=== PATIENT | female | born 1950 | race Caucasian/White ===

== ENCOUNTER → 2018-07-13 09:51 | Outpatient (CLI) | payer MEDICARE, OTHER, SELFPAY ==
--- NOTE | 2018-07-13 10:12 | EKG12_ITS ---
Test Reason : PRE OP Blood Pressure : / mmHG Vent. Rate : 064 BPM Atrial Rate : 064 BPM P-R Int : 142 ms QRS Dur : 072 ms QT Int : 416 ms P-R-T Axes : 025 013 038 degrees QTc Int : 429 ms Normal sinus rhythm Normal ECG Confirmed by JERRY MCKEON MD ([id number]), manager editorial ELIO BRIGHT ([id number]) on 07/16/2018 11:45:34 AM Referred By: Alec Toro Confirmed By:JERRY MCKEON MD
[2018-07-13 10:28] LABS: Hematocrit 43.3 % (37-47); Hemoglobin 14.7 g/dl (12.0-15.0); Mean Corp Hgb Conc 33.9 g/gl (32-36); Mean Corpuscular Hgb 29.6 pg (27.0-32.0); Mean Corpuscular Volume 87.3 fL (81-99); Platelet Count 192 K/mm3 (150-450); RBC Distribution Width CV 13.5 % (11.6-14.6); RBC Distribution Width SD 41.8 fl (35.1-43.9); Red Blood Count 4.96 M/mm3 (4.2-5.4); White Blood Count 6.2 K/mm3 (4.4-11.0)
[2018-07-13 10:29] LABS: Scan Indicated on CBC? Y/N NO
[2018-07-13 10:57] LABS: Amylase 49 U/L (25-115); Anion Gap 7 (5-15); BUN 14 mg/dL (7-18); BUN/Creat Ratio 15.8 RATIO (10-20); Calcium,Total 8.7 mg/dL (8.5-10.1); Chloride 111 mmol/L (98-107); Creatinine, Serum 0.89 mg/dL (0.55-1.02); EST Glomerular Filtration Rate 68 mL/min (>60); Est Glom Filt Rate - Afr Amer 82 mL/min (>60); Glucose 94 mg/dL (74-106); Potassium 4.1 mmol/L (3.5-5.1); Sodium Level 146 mmol/L (136-145)
== END ==
PROVIDERS: Family Provider Family Medicine; PCP Family Medicine; Referring Provider Surgery; Visit Provider Surgery
DX: Z01.812 Encounter for preprocedural laboratory examination (principal); Z01.810 Encounter for preprocedural cardiovascular examination
CPT/HCPCS: 36415; 80048; 82150; 85027; 93005

== ENCOUNTER → 2020-01-09 10:00 | Outpatient (CLI) | payer MEDICARE, SELFPAY ==
--- NOTE | 2020-01-09 10:33 | EKG12_ITS ---
Test Reason : RE OP Blood Pressure : / mmHG Vent. Rate : 060 BPM Atrial Rate : 060 BPM P-R Int : 144 ms QRS Dur : 070 ms QT Int : 412 ms P-R-T Axes : 009 016 050 degrees QTc Int : 412 ms Normal sinus rhythm Normal ECG Confirmed by DANIELA GRANT, HIWOT ([id number]), video news editor ANA JAMES ([id number]) on 01/10/2020 11:37:33 A M Referred By: Alec Toro Confirmed By:JP SUAREZ MD
[2020-01-09 10:36] LABS: Hematocrit 42.4 % (37-47); Hemoglobin 14.4 g/dL (12.0-15.0); Mean Corpuscular Hgb 29.5 pg (27.0-32.0); Mean Corpuscular Volume 86.9 fL (81-99); Mean Platelet Vol. 8.6 fl (6.2-12.0); Platelet Count 161 K/mm3 (150-450); RBC Distribution Width CV 13.2 % (11.6-14.6); RBC Distribution Width SD 41.1 fl (35.1-43.9); Red Blood Count 4.88 M/mm3 (4.2-5.4); White Blood Count 5.6 K/mm3 (4.4-11.0)
[2020-01-09 10:56] LABS: Anion Gap 4 (5-15); BUN 12 mg/dL (7-18); BUN/Creat Ratio 14.1 RATIO (10-20); Calcium,Total 8.7 mg/dL (8.5-10.1); Chloride 112 mmol/L (98-107); Creatinine, Serum 0.85 mg/dL (0.55-1.02); EST Glomerular Filtration Rate 70 mL/min (>60); Est Glom Filt Rate - Afr Amer 85 mL/min (>60); Glucose 93 mg/dL (74-106); Potassium 4.2 mmol/L (3.5-5.1); Sodium Level 143 mmol/L (136-145)
== END ==
PROVIDERS: PCP Family Medicine; Referring Provider Surgery; Visit Provider Surgery
DX: Z01.812 Encounter for preprocedural laboratory examination (principal)
CPT/HCPCS: 36415; 80048; 85027; 87635; 93005; 94799; U0003

== ENCOUNTER 2020-07-13 06:44 | Outpatient (RCR) | payer MEDICARE, SELFPAY | END 2020-07-13 23:59 | LOC: IMMUN 06:44 | PROVIDERS: PCP Family Medicine; Referring Provider Family Medicine; Visit Provider Family Medicine | DX: Z23 Encounter for immunization (principal) | CPT/HCPCS: 0011A; 0012A ==

== ENCOUNTER → 2024-01-16 | Outpatient (CLI) | payer MEDICARE, SELFPAY ==
[2024-01-16 09:19] LABS: Vitamin D,25 Hydroxy 88.8 ng/mL
[2024-01-16 09:21] LABS: ALB/GLOB Ratio 1.3 RATIO (0.9-2.4); AST(SGOT) 16 U/L (15-37); Alanine Aminotransfer ALT/SGPT 24 U/L (13-56); Albumin, Serum 3.8 g/dL (3.2-5.0); Alkaline Phosphatase 91 U/L (45-117); Anion Gap 8 (5-15); BUN 14 mg/dL (7-18); BUN/Creat Ratio 17.1 RATIO (10-20); Chloride 111 mmol/L (98-107); Cholesterol 122 mg/dL (200); Creatinine, Serum 0.82 mg/dL (0.55-1.02); EST Glomerular Filtration Rate 73 mL/min (>60); Est Glom Filt Rate - Afr Amer 88 mL/min (>60); Glucose 162 mg/dL (74-106); High Density Lipoprotein 54 mg/dL; Protein, Total 6.8 g/dL (6.4-8.2); Sodium Level 143 mmol/L (136-145); Triglycerides 84 mg/dL; Very Low Density Lipoprotein 17 mg/dL (5-40)
== END | disposition home or self-care (01) ==
LOC: LAB 08:21
PROVIDERS: PCP Family Medicine; Referring Provider Family Medicine; Visit Provider Family Medicine
DX: E78.5 Hyperlipidemia, unspecified (principal); E11.8 Type 2 diabetes mellitus with unspecified complications; E55.9 Vitamin D deficiency, unspecified
CPT/HCPCS: 36415; 80053; 80061; 82306; 84443

== ENCOUNTER 2024-02-16 11:13 | Emergency (ER) | payer MEDICARE, SELFPAY ==
[2024-02-16 11:14] VITALS: BP 98/60; PULSE 51; RESP 16; TEMP 36.7; O2SAT 97; BMI 26.5
--- NOTE | 2024-02-16 11:25 | RAD_ITS ---
STUDY: X-RAY - LEFT WRIST REASON FOR EXAM: Female, 73 years old. INJURY TECHNIQUE: 3 view(s) of the wrist were obtained. COMPARISON: None. FINDINGS: There is a comminuted fracture of the distal radial metaphysis extending to the articular surface with dorsal facing. Avulsion fracture of the ulnar styloid. Normal radiocarpal articulation. Normal distal radioulnar articulation. Normal carpal bones. Normal carpal articulations. Normal carpometacarpal articulation of the thumb. Normal second through fifth carpometacarpal articulations. Normal visualized metacarpal bones. Soft tissue swelling. RAD/Wrist min 3 Views IMPRESSION: Comment a fracture of the distal radial metaphysis with extension to the articular surface. Dorsal facing. Avulsion fracture of the ulnar styloid. Electronically Signed: Familia Young MD at 12:25 EDT ,
--- NOTE | 2024-02-16 12:45 | CON.PCM.OR_ITS ---
HPI Consult Data Date of Consult: 02/16/24 HPI Narrative HPI Narrative: MARTHA MORSE, is a 73 F who presents with a distal radius fracture. called by Dr. Ramachandran. fell playing pickleball. intra articular fracture. wondering about reduction closed vs surgery. nvi per the provider, closed [facility] Medical History (Updated 02/16/24 @ 12:46 by Shantanu Mejia MD) Distal radius fracture Diabetes Allergy/AdvReac Type Severity Reaction Status Date / Time No Known Allergies Allergy Verified 02/16/24 11:16 Social History Smoking Status: Never smoker Vital Signs Vital Signs Vital Signs: 02/16/24 11:14 Temperature 98.1 F Temperature Source Oral Pulse Rate 51 L Respiratory Rate 16 Blood Pressure 98/60 Blood Pressure Mean 72 Pulse Ox 97 Oxygen Delivery Method Room Air Weight Weight: 145 lb Body Mass Index (BMI) 26.5 Imaging Radiology Impression Wrist X-Ray 02/16/24 11:25 IMPRESSION: Comment a fracture of the distal radial metaphysis with extension to the articular surface. Dorsal facing. Avulsion fracture of the ulnar styloid. Electronically Signed: Familia Young MD at 12:25 EDT , Assessment & Plan Assessment/Plan (1) Distal radius fracture: PLAN: 73 yr F with a intra articular angulated DRF. Can give option of closed reduction and casting. Other option is splint and consider ORIF as outpatient. Either is appropriate. Dr. Ramachandran will give options to patient. OK to FU outpatient next week.
[2024-02-16] MEDS: traMADol 50 MG Tablet PO (12:46)
--- NOTE | 2024-02-16 12:51 | EDS_ITS ---
HPI History of Present Illness Chief Complaint: Upper Extremity Injury Informant: patient Narrative Narrative: Healthy 73-year-old female was playing pickle ball today and stumbled fell onto her left hand/wrist, immediate pain in the left wrist and inability to move it. She is right-hand dominant. She also fell onto her buttocks but she denies any pain or injury there or anywhere else. Denies any numbness or tingling. No pain elsewhere in the left upper extremity. [facility] Medical History Distal radius fracture Diabetes Home Medications ?Medication ?Instructions ?Recorded ?Last Taken ?Type tramadol 50 mg tablet 50 mg PO Q6H PRN pain 3 days #10 02/16/24 Unknown Rx tabs Allergy/AdvReac Type Severity Reaction Status Date / Time No Known Allergies Allergy Verified 02/16/24 11:16 Social History Smoking Status: Never smoker ROS ROS ED Constitutional Constitutional ED: Denies chills or fever(s) Musculoskeletal Musculoskeletal: Reports extremity pain; Denies neck pain Integumentary Denies Abrasions, rash or wounds Neurologic Neurologic: Denies paresthesias or weakness EXAM Physical Exam Const Vital Signs: 02/16/24 11:14 Temperature 98.1 F Temperature Source Oral Pulse Rate 51 L Respiratory Rate 16 Blood Pressure 98/60 Blood Pressure Mean 72 Pulse Ox 97 Oxygen Delivery Method Room Air Positive well nourished and well developed General Appearance ED: well developed and NAD Neck full ROM and supple Resp normal respiratory effort Back/Spine normal ROM and normal to inspection Extremity Extremity Narrative: Limited range of motion left wrist due to pain, there is swelling and tenderness about the distal radius area. She can move the fingers but is limited due to pain in her wrist. Same with the elbow but the hinge mechanism works and she has no bony tenderness there or in the shoulder. Neurovascular intact distally all fingertips. Neuro oriented x3, no focal motor deficits and no sensory deficits noted Sensorium / Orientation: alert Psych mental status grossly normal and thought process normal Skin no wounds Rashes: no rashes MDM MDM MDM Narrative Medical decision making narrative: Three-view x-ray series of the left wrist on my interpretation shows a comminuted Colles' fracture. Discussed with Dr. Mejia agrees that it would be reasonable to try reduction since there is impaction and some displacement/angulation. This was into the procedure note, and was successful. She was getting some median nerve paresthesias prior to performing hematoma block or reduction/splinting. She was still able to perform median nerve motor function. Patient was given tramadol initially which helped some with the pain, but the hematoma block helped a lot more and able to us to perform close reduction. Postreduction films 2 views of my interpretation show improvement. Radiology in agreement. She is can follow-up as an outpatient as there is still a good possibility she will need surgery on this. Radiography Diagnostic Testing: Clinical Impression(s) from Imaging Studies Wrist X-Ray 02/16/24 11:25 IMPRESSION: Comment a fracture of the distal radial metaphysis with extension to the articular surface. Dorsal facing. Avulsion fracture of the ulnar styloid. Electronically Signed: Familia Young MD at 12:25 EDT , Management Discussion w/another healthcare provider: Menagerie Caretaker (Durga Mejia) Procedures Upper Extremity Splints Upper Extremity Splint: Orthoglass (Short arm AP) Splint Fabrication: Fabricated Location: Left (Neurovascularly intact distally after placement) Other Procedures Procedure(s): Hematoma block: After isopropanol and chlorhexidine prep dorsally, injected 8 cc of 1% lidocaine into the fracture site after aspirating small amount of blood. She tolerated this well, there were no complications, and provided good anesthesia. Close reduction left displaced wrist fracture: After hematoma block performed, did manipulation of the distal radius fracture, attempting to distract the patient's hand and carpus while pushing dorsally to try to correct the displacement and angulation. Clinically there is improvement, neurovascularly intact distally within the limits of the exam given she was already having some median nerve distribution paresthesias prior to the procedure and anesthesia. Postreduction films show improvement. She was splinted. Tolerated well. Discharge Plan Triage Chief Complaint: Upper Extremity Injury ED Provider: Aravind Ramachandran Dx/Rx/DC Orders Clinical Impression: Closed fracture of distal end of left radius, Fall from slip, trip, or stumble Instructions: Distal Radius Fx Prescriptions: New tramadol 50 mg tablet 50 mg PO Q6H PRN (Reason: pain) 3 Days Qty: 10 0RF Primary Care Provider: Karina Zamorano Referrals: Karina Zamorano MD [Primary Care Provider] - Shantanu Mejia MD [Med Staff - Active Staff] - As soon as possible Print Language: German Disposition Disposition: Home, Self Care Discharge Date/Time: 02/16/24 16:27
[2024-02-16 15:14] VITALS: BP 140/77; PULSE 81; RESP 18; O2SAT 98
--- NOTE | 2024-02-16 15:15 | RAD_ITS ---
INDICATION: Postreduction EXAMINATION/TECHNIQUE: X-RAY - LEFT XR Wrist 2 Views 2 VIEWS COMPARISON: Left wrist series earlier same date FINDINGS: SOFT TISSUES: Mild dorsal soft tissue swelling. No radiopaque foreign body. BONES/JOINTS: Partial reduction of the comminuted intra-articular fracture of the distal radius with more nearly anatomic alignment.] Fracture of the ulnar styloid unchanged. RAD/Wrist 2 Views IMPRESSION: More nearly anatomic reduction of the comminuted intra-articular fracture distal left radius. Electronically Signed: Laith Ruvalcaba MD at 15:55 EDT ,
[2024-02-16] MEDS: Acetaminophen 500 MG Tablet 1000 MG PO (16:18)
[2024-02-16] MEDS: Ondansetron ODT 4 MG Tablet 8 MG PO (16:18)
[2024-02-16] MEDS: Lidocaine 1% (20 ml mdv) 20 ML Vial 10 ML INFILT (16:18)
== END 2024-02-16 16:27 | disposition home or self-care (01) ==
PROVIDERS: Emergency Provider Emergency Medicine; PCP Internal Medicine; Visit Provider Emergency Medicine
DX: S52.572A Other intraarticular fracture of lower end of left radius, initial encounter for closed fracture (principal); W01.0XXA Fall on same level from slipping, tripping and stumbling without subsequent striking against object, initial encounter; Y93.79 Activity, other specified sports and athletics; Y99.8 Other external cause status
CPT/HCPCS: 25605; 73100; 73110; 99282

== ENCOUNTER → 2024-02-27 | Outpatient (CLI) | payer MEDICARE, SELFPAY ==
--- NOTE | 2024-02-27 14:45 | CT_ITS ---
STUDY: CT LEFT WRIST WITHOUT CONTRAST REASON FOR EXAM: Female, 73 years old. Evaluate left wrist fracture. TECHNIQUE: Transaxial CT imaging of the left wrist was performed. Sagittal and coronal images were reconstructed. COMPARISON: Left wrist radiographs dated 02/26/2024. FINDINGS: There is a comminuted intra-articular fracture of the distal radius. There is a fracture of the ulnar styloid. Intact carpal bones. There is mild widening of the scapholunate interval, measuring 3 mm. There is degenerative arthrosis of the carpometacarpal articulation of the thumb with mild radial subluxation of the first metacarpus. Normal second through fifth carpometacarpal articulations. Normal visualized metacarpal bones. There is a fiberglass cast surrounding the wrist. CT/Extremity Upper without Contra IMPRESSION: Comminuted intra-articular fracture of the distal radius. Fracture of the ulnar styloid. Mild widening of the scapholunate interval, measuring 3 mm. Degenerative arthrosis of the carpometacarpal articulation of the thumb with mild radial subluxation of the first metacarpus. Electronically Signed: Abraham Martinez MD at 15:33 EDT ,
== END | disposition home or self-care (01) ==
LOC: CT 14:41
PROVIDERS: PCP Internal Medicine; Referring Provider Orthopaedic Surgery Sports Medicine; Visit Provider Orthopaedic Surgery Sports Medicine
DX: S52.502A Unspecified fracture of the lower end of left radius, initial encounter for closed fracture (principal)
CPT/HCPCS: 73200

== ENCOUNTER → 2024-04-23 | Outpatient (CLI) | payer MEDICARE, SELFPAY ==
[2024-04-23 12:14] LABS: Absolute Lymphocyte Count 1.43 X10^3/uL (0.83-4.51); Absolute Neutrophil Count 3.3 X10^3/uL (2.0-7.7); Basophil# 0.03 X10^3/uL; Basophil% 0.6 % (0-1); Eosinophil# 0.11 X10^3/uL; Eosinophils% 2.1 % (0-5); Hematocrit 40.9 % (37-47); Hemoglobin 14.1 g/dL (12.0-15.0); Lymphocyte # 1.43 X10^3/ul (0.83-4.51); Lymphocyte % 27.1 % (19-41); Mean Corp Hgb Conc 34.5 g/dL (32-36); Mean Corpuscular Hgb 29.7 pg (27.0-32.0); Mean Corpuscular Volume 86.3 fL (81-99); Monocyte# 0.39 X10^3/uL; Monocyte% 7.4 % (0-10); NRBC Flagged by Analyzer 0 % (0-5); Neutrophil # 3.29 X10^3/uL (2.7-7.7); Neutrophil % 62.2 % (47-70); Platelet Count 152 K/mm3 (150-450); RBC Distribution Width CV 12.8 % (11.6-14.6); RBC Distribution Width SD 39.8 fl (35.1-43.9); Red Blood Count 4.74 M/mm3 (4.2-5.4); White Blood Count 5.3 K/mm3 (4.4-11.0)
[2024-04-23 12:49] LABS: ALB/GLOB Ratio 1.3 RATIO (0.9-2.4); AST(SGOT) 21 U/L (15-37); Alanine Aminotransfer ALT/SGPT 31 U/L (13-56); Albumin, Serum 3.7 g/dL (3.2-5.0); Alkaline Phosphatase 77 U/L (45-117); Anion Gap 6 (5-15); BUN 13 mg/dL (7-18); BUN/Creat Ratio 19.8 RATIO (10-20); Calcium,Total 9.1 mg/dL (8.5-10.1); Chloride 112 mmol/L (98-107); Cholesterol 120 mg/dL (200); Creatinine, Serum 0.66 mg/dL (0.55-1.02); EST Glomerular Filtration Rate 94 mL/min (>60); Est Glom Filt Rate - Afr Amer 114 mL/min (>60); Globulin 2.8 g/dL (2.2-4.2); Glucose 161 mg/dL (74-106); High Density Lipoprotein 48 mg/dL; Potassium 3.9 mmol/L (3.5-5.1); Protein, Total 6.5 g/dL (6.4-8.2); Sodium Level 141 mmol/L (136-145); Triglycerides 131 mg/dL; Very Low Density Lipoprotein 26 mg/dL (5-40)
[2024-04-23 12:59] LABS: Vitamin D,25 Hydroxy 79.5 ng/mL
[2024-04-23 19:25] LABS: Microalbumin,Random Urine 6.1 mg/L (NO RANGE EST.); Microalbumin:Creatinine Ratio 6.4 mg/g CRE (<30 mg/g CRE)
== END | disposition home or self-care (01) ==
LOC: BIMLAB 08:23
PROVIDERS: PCP Internal Medicine; Referring Provider Internal Medicine; Visit Provider Internal Medicine
DX: I10 Essential (primary) hypertension (principal); E11.9 Type 2 diabetes mellitus without complications; M85.80 Other specified disorders of bone density and structure, unspecified site
CPT/HCPCS: 36415; 80053; 80061; 82043; 82306; 82570; 83036; 85025

== ENCOUNTER → 2024-06-18 | Outpatient (CLI) | payer MEDICARE, SELFPAY ==
--- NOTE | 2024-06-18 12:17 | BI_ITS ---
PROCEDURE: SCRN MAMM (CAD)W/JUAN BILAT REASON FOR EXAM: F, Age 73 y/o, presents for annual screening mammogram. TECHNIQUE: Bilateral screening digital breast tomosynthesis with 2D and 3D images. Computer aided detection. COMPARISON: 06/22/2023, 06/16/2023 . FINDINGS: The breasts are heterogeneously dense which may obscure small masses. The mammogram demonstrates that the patient has dense breasts. Supplemental screening with whole breast ultrasound may be considered for further evaluation. No suspicious masses, areas of developing architectural distortion, or suspicious calcifications. BI/SCRN MAMM (CAD)W/JUAN BILAT IMPRESSION: There is no mammographic evidence of malignancy. BI-RADS 1: NEGATIVE. RECOMMEND ANNUAL MAMMOGRAPHIC SCREENING. Follow-up code: Routine Follow-up The patient will be notified of the results by letter. Reading Location: [id number]
--- NOTE | 2024-06-18 12:22 | BD_ITS ---
PROCEDURE: DEXA BONE DENSITY STUDY REASON FOR EXAM: F, age 73 y/o . Patient is postmenopausal.. TECHNIQUE: DEXA scan of the lumbar spine and both hips. COMPARISON: None. FINDINGS: Lumbar Spine (L1-L4): g/cm2 (0.921)/T-score (-1.1)/Z-score (1.1) findings are suggestive of osteopenia with a low fracture risk. Left Femur Total: g/cm2 (0.874)/T-score (-0.6)/Z-score (1.1) Left Femoral Neck: g/cm2 (0.850)/T-score (0.0)/Z-score (2.0) Right Femur Total: g/cm2 (0.965)/T-score (0.2)/Z-score (1.8) Right Femoral Neck: g/cm2 (0.851)/T-score (0.0)/Z-score (2.0) BD/Dexa Bone Density Study IMPRESSION: OSTEOPENIA. Low fracture risk. Reading Location: [place] [address]
== END | disposition home or self-care (01) ==
PROVIDERS: PCP Internal Medicine; Referring Provider Internal Medicine; Visit Provider Internal Medicine
DX: Z13.820 Encounter for screening for osteoporosis (principal); Z78.0 Asymptomatic menopausal state; Z12.31 Encounter for screening mammogram for malignant neoplasm of breast
CPT/HCPCS: 77063; 77067; 77080

== ENCOUNTER → 2024-11-21 | Outpatient (CLI) | payer MEDICARE, SELFPAY ==
[2024-11-21 18:27] LABS: Anion Gap 14 (5-15); BUN 21 mg/dL (4-19); BUN/Creat Ratio 27.4 RATIO (10-20); Calcium,Total 9.5 mg/dL (7.6-11.0); Carbon Dioxide 19.5 mmol/L (21.0-32.0); Chloride 108 mmol/L (98-108); Glucose 126 mg/dL (70-99); Potassium 3.9 mmol/L (3.3-5.1)
== END | disposition home or self-care (01) ==
LOC: BIMLAB 15:12
PROVIDERS: PCP Internal Medicine; Visit Provider Internal Medicine
DX: I10 Essential (primary) hypertension (principal)
CPT/HCPCS: 36415; 80048

== ENCOUNTER → 2024-12-06 | Outpatient (CLI) | payer MEDICARE, SELFPAY ==
[2024-12-06 13:08] LABS: Anion Gap 10 (5-15); BUN 13 mg/dL (4-19); BUN/Creat Ratio 16.6 RATIO (10-20); Calcium,Total 9.1 mg/dL (7.6-11.0); Carbon Dioxide 24.3 mmol/L (21.0-32.0); Chloride 106 mmol/L (98-108); Glucose 151 mg/dL (70-99); Potassium 4.3 mmol/L (3.3-5.1)
== END | disposition home or self-care (01) ==
LOC: BIMLAB 11:05
PROVIDERS: PCP Internal Medicine; Referring Provider Internal Medicine; Visit Provider Internal Medicine
DX: I10 Essential (primary) hypertension (principal)
CPT/HCPCS: 36415; 80048

== ENCOUNTER → 2024-12-25 | Outpatient (CLI) | payer MEDICARE, SELFPAY ==
--- NOTE | 2024-12-25 14:32 | NEURO ---
NCS and/or EMG Patient Report Ordering Doctor: Karina Zamorano DATE OF SERVICE: 12/25/24 Barbara presents with complaints of numbness in the left hand. Electrodiagnostic findings: Left median motor nerve demonstrates prolonged distal latency with reduced amplitude and normal conduction velocity. Left ulnar motor response is within normal limits. Prolonged left median F?wave. Prolonged left median sensory latency at the wrist. Normal left ulnar and radial sensory responses. Needle EMG testing was performed in the left upper limb. All muscles tested showed no evidence of denervation with normal motor unit action potentials. Electrodiagnostic impression: This is an abnormal study in the left upper limb. 1. Electrodiagnostic findings suggestive of left-sided median mononeuropathy. This is consistent with a moderate to advanced left carpal tunnel syndrome. Multi Select Codes Neurology Neurology Interp Codes: 69189-56 Musc test done w/n test comp (interp) and 81486-59 Nrv cndj tst 5-6 studies (interp)
== END | disposition home or self-care (01) ==
LOC: PSN 13:35
PROVIDERS: PCP Internal Medicine; Referring Provider Internal Medicine; Visit Provider Internal Medicine
DX: G56.02 Carpal tunnel syndrome, left upper limb (principal)
CPT/HCPCS: 95886; 95909

== ENCOUNTER 2025-01-15 11:11 | Day surgery (SDC) | payer MEDICARE, SELFPAY ==
[2025-01-15] VITALS (8 sets, daily range): BP systolic 100–123; BP diastolic 57–72; PULSE 53–72; RESP 16; TEMP 36.2–36.6; O2SAT 92–98; BMI 27.2
--- NOTE | 2025-01-15 11:33 | PCM.HP.STD ---
HPI - General HPI Narrative MARTHA MORSE, is a 74 F who presents for left endoscopic carpal tunnel release. no changes to h and p. left wrist marked. rab and post op instructions discussed. ok to proceed, no further questions. MR#: [id number] Acct: [id number] Name: MARTHA MORSE Rep #: [id number] : 1950 Provider: Dr. Shantanu Mejia MD Age/Sex: 74/F Location: [facility] Status: Signed Intake Vital Signs 11/21/2513:45 12/30/2512:59 Height 5 ft 2 in 5 ft 2 in Weight: 148 lb BMI 27.1 Intake Visit Reasons: LEFT HAND Chief Complaint: Left hand carpal tunnel EMG review Accompanied by: Self Is patient in pain?: No Allergies etodolac Allergy (Mild, Verified 12/30/24 14:02) Hives Medications ?Medication ?Instructions ?Recorded ?Confirmed ?Type ergocalciferol (vitamin D2) 1,250 1,250 mcg PO QWEEK 02/19/24 12/30/24 History mcg (50,000 unit) capsule escitalopram oxalate 10 mg tablet 10 mg PO QDAY #90 tabs 12/02/24 12/30/24 Rx losartan 25 mg tablet 25 mg PO QDAY #90 tabs 12/02/24 12/30/24 Rx rosuvastatin 10 mg tablet 10 mg PO QDAY #90 tabs 12/02/24 12/30/24 Rx Have you fallen in the past year?: No PFSH Medical History Left carpal tunnel syndrome Health care maintenance Anxiety and depression Type 2 diabetes mellitus Hypertension Osteopenia Osteoarthritis Hives Hearing problem Head ache Gallstones Emotional disorder Cataracts, bilateral Breast lump Back ache Arthritis Seasonal allergies Distal radius fracture Diabetes Surgical History Surgical history unknown H/O cataract removal with insertion of prosthetic lens History of cholecystectomy H/O section Family History Brother Alcoholism Diabetes type 2Mother Anxiety Arthritis OsteoporosisFather Diabetes type 2 Myocardial infarction, Onset Age: 44 also ages 67,85 Cancer skinSister Liver disease MelanomaGrandmother Diabetes type 2 Social History household members: none housing: house current occupational status: retired Smoking Status: Never smoker alcohol intake: never substance use type: does not use what type of physical activity do you participate in: other details: low impact aerobics, pickle ball frequency: 3-4 times per week seatbelt use: always do you feel safe at home: Yes HPI LEFT HAND Details: This documentation accurately reflects the service provided and the decisions made by me, Dr. Shantanu Mejia MD 12/30/24 1000. Part of today?s visit was documented by [ ], acting as scribe. MARTHA MORSE is a 74 year old F here today for FU L carpal tunnel syndrome, following from [facility]. Patient having numbness and tingling in the first 3 fingers positive flick sign worse with driving has tried and exhausted nighttime splinting. Supplemental Info [facility]monary Services/Neurology [address] [place] [address] MR#: [id number] Acct: [id number] Name: MARTHA MORSE ELIO Rep #: [id number] : 1950 74 From: Monica Cleary MD Referring Dr: Karina Zamorano MD Status: REG CLI Location: [facility] Date: 12/25/24 Sex: F C NCS and/or EMG Patient Report Ordering Doctor: Karina Zamorano DATE OF SERVICE: 12/25/24 Martha presents with complaints of numbness in the left hand. Electrodiagnostic findings: Left median motor nerve demonstrates prolonged distal latency with reduced amplitude and normal conduction velocity. Left ulnar motor response is within normal limits. Prolonged left median F?wave. Prolonged left median sensory latency at the wrist. Normal left ulnar and radial sensory responses. Needle EMG testing was performed in the left upper limb. All muscles tested showed no evidence of denervation with normal motor unit action potentials. Electrodiagnostic impression: This is an abnormal study in the left upper limb. 1. Electrodiagnostic findings suggestive of left-sided median mononeuropathy. This is consistent with a moderate to advanced left carpal tunnel syndrome. Multi Select Codes Neurology Neurology Interp Codes: 21814-12 Musc test done w/n test comp (interp) and 87584-68 Nrv cndj tst 5-6 studies (interp) Coding Level of Care Code Off vis,est,level 4 Diagnoses Left carpal tunnel syndrome G56.02 Distal radius fracture S52.509A Type 2 diabetes mellitus E11.9 Assessment and Plan Assessment and Plan (1) Left carpal tunnel syndrome: Status: Chronic Plan: 74 yr F with electrodiagnostic findings suggestive of left-sided median mononeuropathy. This is consistent with a moderate to advanced left carpal tunnel syndrome. Discussed the pros and cons risks and benefits of continued nonoperative management as well as open her endoscopic carpal tunnel release. Slightly quicker recovery with endoscopic possibly increased risks of incomplete release. The patient understands has diabetes with hemoglobin A1C under 7 although that can increase the chances of infection or other complications. The patient understands wished to go ahead with booked and signed a consent form today for left endoscopic carpal tunnel release. Carpal Tunnel Syndrome (CTS) occurs when the median nerve, which runs through the wrist, becomes compressed. Treatment options vary based on the severity of the condition: Non-Surgical Treatments: Wrist Splinting: Wearing a splint at night to keep the wrist in a neutral position. Activity Modification: Avoiding repetitive wrist movements or adjusting work habits. Physical Therapy: Exercises to improve wrist and hand function. Medications: Anti-inflammatory drugs (NSAIDs) or corticosteroid injections to reduce swelling and pain. Surgical Treatment: Carpal Tunnel Release Surgery: A procedure where the ligament pressing on the median nerve is cut to relieve pressure. This is considered when non-surgical treatments are ineffective. Options are min-open or endoscopic. (2) Distal radius fracture: Status: Acute (3) Type 2 diabetes mellitus: Status: Chronic Clinical Quality Measures Falls Risk Screening/Assistive Devices Have you fallen in the past year?: No Ortho Exam General General: Yes no acute distress Neurologic: Yes alert and Yes oriented x3 Psychologic: Yes reasonable and appropriate Right Wrist/Hand Skin/Wound: No Swelling (mild) and No Ecchymosis Left Wrist/Hand Skin/Wound: Yes CDI, No Swelling (mild), No Ecchymosis, Yes nail intact, Yes capillary refill normal and No erythema Left Wrist: Yes ROM-Pronation 0-80, Yes ROM-Supination 0-90, Yes Durken's Test and Yes Phalen's; No TTP Fracture site, No Snuffbox tenderness, No Palpable Nodule, No Tinel's, No Thenar Atrophy and No Hypothenar Atrophy Motor: EPL: 5, FDP-2: 5, 1st Dorsal Interosseous: 5 and APB: 5 Sensation: Radial: I, Ulnar: I and Median: D [facility] Medical History (Updated 01/03/25 @ 13:35 by Gemma Pearl) Loss of hearing Wears glasses Post-menopausal High cholesterol Back pain Migraine headache Injury of head and neck Vertigo Dietary restriction Heartburn Non-smoker Leg cramps History of trigger finger Left carpal tunnel syndrome Anxiety and depression Type 2 diabetes mellitus Hypertension Osteopenia Osteoarthritis Arthritis Distal radius fracture Home Medications ?Medication ?Instructions ?Recorded ?Last Taken ?Type ergocalciferol (vitamin D2) 1,250 1,250 mcg PO QWEEK 02/19/24 01/12/25 History mcg (50,000 unit) capsule escitalopram oxalate 10 mg tablet 10 mg PO QDAY #90 tabs 12/02/24 01/14/25 Rx losartan 25 mg tablet 25 mg PO QDAY #90 tabs 12/02/24 01/14/25 Rx rosuvastatin 10 mg tablet 10 mg PO QDAY #90 tabs 12/02/24 01/14/25 Rx Allergy/AdvReac Type Severity Reaction Status Date / Time etodolac Allergy Mild Hives Verified 01/15/25 11:42 Family History Brother Alcoholism Diabetes type 2 Mother Anxiety Arthritis Osteoporosis Father Diabetes type 2 Myocardial infarction, Onset Age: 43 also ages 67,85 Cancer skin Sister Liver disease Melanoma Grandmother Diabetes type 2 Surgical History (Updated 01/03/25 @ 13:35 by Gemma Pearl) Hx of colonoscopy Hx of vein stripping H/O cataract removal with insertion of prosthetic lens History of cholecystectomy H/O section Social History household members: none housing: house current occupational status: retired Smoking Status: Never smoker alcohol intake: never substance use type: does not use what type of physical activity do you participate in: other details: low impact aerobics, pickle ball frequency: 3-4 times per week seatbelt use: always do you feel safe at home: Yes
[2025-01-15] MEDS: Lactated Ringers 1,000 ML 15 ML IV (11:56)
--- NOTE | 2025-01-15 12:21 | PCM.PRE.AN2 ---
ASA Classification* ASA Classification ASA Classification: 2 (T2DM, HTN,migraines, vertigo, hx PONV) Assessment & Plan Anesthesia* Anesthesia Assessment Anesthesia Assessment: Discussed sedation and/or anesthesia options, risks, benefits, and alternatives with patient/parents/legal guardian/POA. Questions invited. The patient/parents/legal guardian/POA seems to understand and agrees to proceed with anesthesia plan. Reviewed the physical assessment, medical history, allergy history and patient home medications list prior to surgery/procedure/anesthetic and documented any changes. Performed airway and anesthesia risk assessments. Anesthesia Type Anesthesia Type: MAC History Source History Obtained from:: Patient and Chart Anesthesia Focused Assessment* Temperature: 98 F Pulse Rate: 53 Blood Pressure: 123/72 Respiratory Rate: 16 Pulse Ox: 98 Oxygen Delivery Method: Room Air Airway Assessment Mouth opens: >3 cm Mallampati Score: II Neck Range of motion (ROM): Full ROM Labs Anesthesia Preop lab: CBC WBC 5.3 K/mm3 (4.4-11.0) 04/23/24 08:23 04/23/24 RBC 4.74 M/mm3 (4.2-5.4) 04/23/24 08:23 04/23/24 Hgb 14.1 g/dL (12.0-15.0) 04/23/24 08:23 04/23/24 Hct 40.9 % (37-47) 04/23/24 08:23 04/23/24 Plt Count 152 K/mm3 (150-450) 04/23/24 08:23 04/23/24 CHEMISTRY Potassium 4.3 mmol/L (3.3-5.1) 12/06/24 11:05 12/06/24 Sodium 140 mmol/L (133-145) 12/06/24 11:05 12/06/24 BUN 13 mg/dL (4-19) 12/06/24 11:05 12/06/24 Creatinine 0.79 mg/dL (0.70-1.20) 12/06/24 11:05 12/06/24 Glucose 151 mg/dL (70-99) H 12/06/24 11:05 12/06/24 TSH 3.280 uIU/mL (0.358-3.740) 01/16/24 08:25 01/16/24 COAG Pre-Assessment Diagnosis/Proposed Procedure Planned Operative Procedure(s): LEFT CARPAL TUNNEL RELEASE Anesthesia History Anesthesia History - data collection technician: Anesthesia History - data collection technician Hx Hospitalization No 01/03/25 13:28 Any Problems With Anesthesia Yes: N,V WITH COLONOSCOPY 01/03/25 13:28 Cholinesterase deficiency No 01/03/25 13:28 You/Your Family Experience No 01/03/25 13:28 fever (hyperthermia) with Relationship Recent Exposure to Contagious No 01/15/25 11:46 Disease Does patient have nerve No 01/03/25 13:28 stimulator Patient instructed to have device shut off --Does patient have Pacemaker No 01/15/25 11:46 or ICD? When Was Last Pacemaker Check QUESTION #4 FULL TEXT: You/Your Family Experience fever (hyperthermia) with Anesthesia Last Oral Intake Last Oral intake: Last Oral Intake NPO since 20:30 01/15/25 11:46 Meds taken in AM with sips of No 01/15/25 11:46 water? Meds patient instructed to take am of surgery PONV PONV - data collection technician: PONV - data collection technician Female Yes 01/03/25 13:28 HX of Motion Sickness No 01/03/25 13:28 HX of N/V After Surgery Yes 01/03/25 13:28 Non-Smoker Yes 01/03/25 13:28 Duration of Surgery greater No 01/03/25 13:28 than 60 minutes Number of Risk Factors 3 01/03/25 13:28 PONV Score Moderate Risk 01/03/25 13:28 Height & Weight Height & Weight: Anesthesia: Height & Weight Height 5 ft 2 in 01/15/25 11:46 Weight: 67.585 kg 01/15/25 11:46 Body Mass Index (BMI) 27.2 01/15/25 11:46 Respiratory Assessment Respiratory Assessment - data collection technician: Respiratory Tract Infection Hx - data collection technician Hx Respiratory Tract Infection No 01/03/25 13:28 STOP Sleep Apnea STOP Sleep Apnea - data collection technician: STOP Sleep Apnea - data collection technician Hx Hypertension Yes: CONTROLLED WITH MED 01/03/25 13:28 Hx Sleep Apnea No 01/03/25 13:28 CPAP BIPAP Do you snore loudly (louder No 01/03/25 13:28 than talking or can be heard Do you often feel tired/ No 01/03/25 13:28 fatigued/ sleepy during daytime? Has anyone observed you stop No 01/03/25 13:28 breathing during sleep? STOP Results Negative 01/03/25 13:28 QUESTION #5 FULL TEXT : Do you snore loudly (louder than talking or can be heard through closed doors)? Tobacco Use History Tobacco Use History - data collection technician: Tobacco Use History - data collection technician Tobacco Use Smoking Status Never smoker 01/03/25 13:28 Hx Tobacco Use No 01/03/25 13:28 Years Smoking Packs Smoked per Day Smoking Cessation Date was within the last 15 years Hx Smoking Cessation Date Hx Smoking Cessation Counseling Hematologic Medial History Hematologic Hx - data collection technician: Hematologic Medical Hx - velvet cutter Hx of Blood Transfusion No 01/03/25 13:28 Hx of Transfusion in last 3 No 01/03/25 13:28 Months Date of Last Transfusion (if within last 3 months) Ever experience any problems No 01/03/25 13:28 with transfusion(s)? Specify any problems Hx of Preganancy in last 3 No 01/03/25 13:28 Months Nurse Filling Out Transfusion DSCHRIBER 01/03/25 13:28 & Questions: Date: 01/03/25 01/03/25 13:28 Time: 13:30 01/03/25 13:28 Patient unable to answer at this time (ie. confused, unrespo /Reproduction History /Reproductive History - data collection technician: /Reproductive Hx- data collection technician Hx Now No 01/03/25 13:28 Gestational Age (in weeks): EDC: Hx Hx Para Hx Section SAB No 01/03/25 13:28 Active Medications Active Medications: Current Medications Generic Name Dose Route Start Last Admin Trade Name Freq PRN Reason Stop Dose Admin Cefazolin Sodium 2 gm/ Sodium 110 mls @ 200 mls/hr 01/15/25 12:00 Chloride IV 01/15/25 12:32 INTRAOP ONE Lactated Ringer's 1,000 mls @ 15 mls/hr 01/15/25 11:30 01/15/25 11:56 IV 15 mls/hr .Q48H CHANDLER Administration PFSH Medical History (Updated 01/03/25 @ 13:35 by Gemma Pearl) Loss of hearing Wears glasses Post-menopausal High cholesterol Back pain Migraine headache Injury of head and neck Vertigo Dietary restriction Heartburn Non-smoker Leg cramps History of trigger finger Left carpal tunnel syndrome Anxiety and depression Type 2 diabetes mellitus Hypertension Osteopenia Osteoarthritis Arthritis Distal radius fracture Home Medications ?Medication ?Instructions ?Recorded ?Last Taken ?Type ergocalciferol (vitamin D2) 1,250 1,250 mcg PO QWEEK 02/19/24 01/12/25 History mcg (50,000 unit) capsule escitalopram oxalate 10 mg tablet 10 mg PO QDAY #90 tabs 12/02/24 01/14/25 Rx losartan 25 mg tablet 25 mg PO QDAY #90 tabs 12/02/24 01/14/25 Rx rosuvastatin 10 mg tablet 10 mg PO QDAY #90 tabs 12/02/24 01/14/25 Rx Allergy/AdvReac Type Severity Reaction Status Date / Time etodolac Allergy Mild Hives Verified 01/15/25 11:42 Family History Brother Alcoholism Diabetes type 2 Mother Anxiety Arthritis Osteoporosis Father Diabetes type 2 Myocardial infarction, Onset Age: 43 also ages 67,85 Cancer skin Sister Liver disease Melanoma Grandmother Diabetes type 2 Surgical History (Updated 01/03/25 @ 13:35 by Gemma Pearl) Hx of colonoscopy Hx of vein stripping H/O cataract removal with insertion of prosthetic lens History of cholecystectomy H/O section Social History household members: none housing: house current occupational status: retired Smoking Status: Never smoker alcohol intake: never substance use type: does not use what type of physical activity do you participate in: other details: low impact aerobics, pickle ball frequency: 3-4 times per week seatbelt use: always do you feel safe at home: Yes Review of Systems (Anesthesia) ROS Narrative System reviewed and no additional complaints, except as documented. Physical Exam Const alert, oriented x3 and average body habitus Resp normal respiratory effort, normal air movement and clear to auscultation bilaterally Cardio regular rate, regular rhythm, no murmurs and diaphoretic
[2025-01-15] MEDS: Cefazolin 1 GM/5 ML Vial 2 GM IV (14:18)
[2025-01-15] MEDS: Lactated Ringers 1,000 ML 1000 ML IV (14:18)
[2025-01-15] MEDS: Midazolam 2 MG/2 ML Syringe IV (14:20)
[2025-01-15] MEDS: Lidocaine 1% (5 ml sdv) 5 ML Vial IV (14:21)
[2025-01-15] MEDS: fentaNYL 100 MCG/2 ML Ampul IV (14:40)
--- NOTE | 2025-01-15 14:56 | DCINST_ITS ---
Discharge Instructions Diet Discharge Diet: No restrictions Activity Ice area for (Minutes): 10 Lifting Restrictions: no lifting over one pound, wear wrist brace 2 weeks, ok for finger rom Keep extremity elevated above heart level: Operative Extremity Dressing / Incision Call your doctor if your incision/area has: Continuous Slow Oozing, Sudden Increased Bleeding, Increased Pain/ Swelling, Increased Redness, Foul Smelling Discharge and Swelling at the incision site Call your doctor if you observe: Fever of 101 or Higher, Coldness, Increased Pain and Numbness or Tingling Change Dressing in: leave in place till F/U Cleanse incision/area with: Do not get Incision Wet Additional Dressing/Incision Instructions:: ok to wait until FU to change dressing, or change POD 1 and keep covered, keep tapes on (steri strips) Follow Up Care Please Follow Up With: Shantanu Mejia MD When: 2 days (or within 2 weeks) Test Results: Test results from this visit will be discussed in further detail at your follow- up appointment, if applicable. Discharge Plan Admission Attending Provider: Shantanu Mejia Primary Care Provider: Karina Zamorano Instructions Patient Instructions: Carpal Tunnel Release Surgery Print Language: [place] Discharge Orders/Prescriptions Prescriptions: No Action ergocalciferol (vitamin D2) 1,250 mcg (50,000 unit) capsule 1,250 mcg PO QWEEK losartan 25 mg tablet 25 mg PO QDAY Qty: 90 0RF rosuvastatin 10 mg tablet 10 mg PO QDAY Qty: 90 0RF escitalopram oxalate 10 mg tablet 10 mg PO QDAY Qty: 90 0RF Referrals / Follow Up: Karina Zamorano MD [Primary Care Provider] - Shantanu Mejia MD [Med Staff - Active Staff] - Disposition Disposition (needs filled in before D/C Order can be placed): Home, Self Care
--- NOTE | 2025-01-15 15:00 | OP.PCM_ITS ---
Problems Associated Problem List Diagnoses (1) Left carpal tunnel syndrome: Procedures Musculoskeletal [id number]: Other Procedure See Report Operative Report (Standard) Operative Information Date of Procedure: 01/15/25 Pre-Operative Diagnosis: L CTS Post-Operative Diagnosis: same Surgery/Procedure Performed: L ECTR job site superintendent: Yes Nursing Education Specialist: steve Tasks completed by service assistant: Retracting Type of Anesthesia: Local MAC RN Documented Start/Stop Times: Operation Date: 01/15/25 13:00 Case Time Into Pre-Op 01/15/25 11:28 Out of Pre-Op 01/15/25 14:14 Anesthesia Start 01/15/25 14:18 Into Room 01/15/25 14:18 Procedure Start 01/15/25 14:37 Procedure End 01/15/25 14:55 Anesthesia End 01/15/25 15:00 Out of Room 01/15/25 15:00 Procedure Start Time: 14:37 Procedure Stop Time: 14:55 Select all DRAINS/GRAFTS/IMPLANTS that apply: None Estimated Blood Loss: 10 Specimen collected: No Description of surgery: Patient brought to the operating room theater. Placed upon on the table. 2g iv ancef before the start of the case. MAC induced by the anesthetic team. Patient placed supine on the table all bony prominences padded. SCDs on the legs. Hand table used left side. Tourniquet applied properly padded to the upper extremity. Upper extremity prepped and draped in the usual sterile fashion with chlorhexidine-based prep solution allowing over 3 minutes drying time prior to draping. Preoperative timeout performed to confirm the site patient and the surgery. Began by elevating the limb and inflated the tourniquet to 250 mmHg. I used the [employer] center line endoscopic carpal tunnel kit technique. 5cc 0.25% bupivicaine for local anesthesia. I made a transverse 2 cm incision in line with the? transverse wrist crease.? This was in line with the fourth digit.? I carried the dissection down through skin and subcutaneous tissue achieved meticulous hemostasis. Just ulnar to palmaris tendon.? I incised the antebrachial fascia.? I passed sequential dilators into the carpal tunnel along the radial border of the Guyon's canal aiming for the fourth digit with the wrist in extension.? I used a synovial elevator to identify the transverse fibers of the transverse carpal tunnel ligament.? Passed the scope into the carpal tunnel. Once I had identified the full proximal and distal extent of the ligament I fully released the ligament under direct visualization by deploying the blade and slowly withdrawing the scope made sequential passes until I no longer felt tension as well as the entire extent of the ligament was released under direct visualization.? Sounded the tunnel with gonsalves tenotomy scissors , complete release, no bands. Nerve visualized and protected. Arthroscope light was more visible through the skin. More room for the large dilator. Release the forearm fascia also. Pictures taken and saved. Wounds thoroughly irrigated.? Tourniquet let down prior to end of the case and meticulous hemostasis achieved.? Thorough irrigation.? ? Incisions closed with 3-0 vicryl and 3-0 monocryl, steri strips. ?Then adaptic 4x4 gauze and tape. Patient woken up,? transferred off the operating room table and taken to postanesthetic care unit in stable condition. All sponge needle instrument counts were correct no complications.?Plan for the patient to be discharged home according to day surgery criteria when they are comfortable. Follow-up in the office in 2 days time. Gentle ROM finger and elbow no heavy lifting. Recommend wrist brace [address]pt 21317 Surgical Findings: as above Complications Complications: No Admit VTE Documentation VTE Present on Admission: No VTE Mechan Device Prophylaxis: SCD's VTE Pharm Prophylaxis ordered?: No Reason prophylaxis not ordered: Treatment Not Indicated
--- NOTE | 2025-01-15 15:04 | PCM.POST.ANE ---
Anesthesia: Postop Eval I Current Vital Signs Temperature: 97.9 F Pulse Rate: 55 Blood Pressure: 123/72 Respiratory Rate: 16 Pulse Ox: 98 Oxygen Delivery Method: Room Air Assessment Airway patent: Yes Spontaneous unlabored respirations: Yes Mental status: Awake and Calm nausea: No Vomiting: No Anesthesia Complication: No Fluid Hydration Crystalloid volume administer (ml): 500 Total IV fluid infused: 500 Progress Note Anesthesia document: Postop Eval 1 completed: Yes
--- NOTE | 2025-01-15 15:16 | POSTOPAN2_ITS ---
Anesthesia Postop Eval I Sum Postop Eval Completion status Anesthesia document: Postop Eval 1 completed: Yes Anesthesia Postop Eval I Summary Anesthesia Postop Eval I Summary: Anesthesia Postop Eval I: Assessment Summary Airway patent Yes 01/15/25 15:05 DOG OR HORSE RACING OFFICIAL.JBLOU Spontaneous unlabored Yes 01/15/25 15:05 DOG OR HORSE RACING OFFICIAL.JBLOU respirations Mental status Awake,Calm 01/15/25 15:05 DOG OR HORSE RACING OFFICIAL.JBLOU nausea No 01/15/25 15:05 DOG OR HORSE RACING OFFICIAL.JBLOU Vomiting No 01/15/25 15:05 DOG OR HORSE RACING OFFICIAL.JBLOU Anesthesia Postop Eval I: Fluid Summary Crystalloid volume administer 500 01/15/25 15:05 DOG OR HORSE RACING OFFICIAL.JBLOU (ml) Colloids volume administered ( ml) Blood Product volume administered (ml) Total IV fluid infused 500 01/15/25 15:05 DOG OR HORSE RACING OFFICIAL.JBLOU Anesthesia Postop Eval I: Summary Notes Anesthesia Complication No 01/15/25 15:05 DOG OR HORSE RACING OFFICIAL.JBLOU Anesthesia Complication Comment: Post-operative progress note Anesthesia: Postop Eval II Evaluation Mental status: Awake Pain Level: 0 nausea: No Vomiting: No Complications Anesthesia Complication: No
--- NOTE | 2025-01-15 15:16 | PCM.POSTANE2 ---
Anesthesia Postop Eval I Sum Postop Eval Completion status Anesthesia document: Postop Eval 1 completed: Yes Anesthesia Postop Eval I Summary Anesthesia Postop Eval I Summary: Anesthesia Postop Eval I: Assessment Summary Airway patent Yes 01/15/25 15:05 NUCLEAR REACTOR OPERATOR.JBLOU Spontaneous unlabored Yes 01/15/25 15:05 NUCLEAR REACTOR OPERATOR.JBLOU respirations Mental status Awake,Calm 01/15/25 15:05 NUCLEAR REACTOR OPERATOR.JBLOU nausea No 01/15/25 15:05 NUCLEAR REACTOR OPERATOR.JBLOU Vomiting No 01/15/25 15:05 NUCLEAR REACTOR OPERATOR.JBLOU Anesthesia Postop Eval I: Fluid Summary Crystalloid volume administer 500 01/15/25 15:05 NUCLEAR REACTOR OPERATOR.JBLOU (ml) Colloids volume administered ( ml) Blood Product volume administered (ml) Total IV fluid infused 500 01/15/25 15:05 NUCLEAR REACTOR OPERATOR.JBLOU Anesthesia Postop Eval I: Summary Notes Anesthesia Complication No 01/15/25 15:05 NUCLEAR REACTOR OPERATOR.JBLOU Anesthesia Complication Comment: Post-operative progress note Anesthesia: Postop Eval II Evaluation Mental status: Awake Pain Level: 0 nausea: No Vomiting: No Complications Anesthesia Complication: No
== END 2025-01-15 16:01 | disposition home or self-care (01) ==
LOC: SDC 11:14 → AC 11:14
PROVIDERS: PCP Internal Medicine; Referring Provider Orthopaedic Surgery Sports Medicine; Visit Provider Orthopaedic Surgery Sports Medicine
PROC: (CPT 64721; principal; 2025-01-15 12:45)
DX: G56.02 Carpal tunnel syndrome, left upper limb (principal); E11.9 Type 2 diabetes mellitus without complications; I10 Essential (primary) hypertension; E78.00 Pure hypercholesterolemia, unspecified; Z79.899 Other long term (current) drug therapy
CPT/HCPCS: 64721; 01810; 82962; J2405